=== PATIENT | female | born 1985 | race Caucasian/White ===

== ENCOUNTER 2017-02-16 02:39 | Emergency (ER) | payer SELFPAY ==
[2017-02-16 04:35] LABS: Hematocrit 33 % (35-47); Hemoglobin 10.8 g/dl (12.0-16.0); Mean Corpuscular HGB Conc 33 g/dl (31-36); Mean Corpuscular Hemoglobin 31 pg (27-31); Mean Corpuscular Volume 92 fL (80-97); Mean Platelet Volume 8 um3 (7.4-10.4); Red Blood Count 3.54 10^6/ul (4.0-5.4); Red Cell Distribution Width 14 % (10.5-15); White Blood Count 6.8 10^3/ul (3.5-10.8)
[2017-02-16 04:52] LABS: ALT 8 U/L (7-52); Albumin 4.1 g/dL (3.2-5.2); Alkaline Phosphatase 46 U/L (34-104); BUN/Creatinine Ratio 16.7 (8-20); Blood Urea Nitrogen 11 mg/dL (6-24); CO2 Carbon Dioxide 23 mmol/L (22-32); Calcium 9.5 mg/dL (8.6-10.3); Chloride 106 mmol/L (101-111); EGFR African American 135.2 (>60); EGFR Non-African American 105.2 (>60); Glucose 98 mg/dL (70-100); Sodium 135 mmol/L (133-145); Total Protein 7.1 g/dL (6.4-8.9)
[2017-02-16 04:54] LABS: AST 14 U/L (13-39); Anion Gap 6 mmol/L (2-11); Potassium 3.9 mmol/L (3.5-5.0)
[2017-02-16] MEDS ORDERED: Iohexol 300* (CONTRAST) 10 ML SDV IV ONE (06:47)
--- NOTE | 2017-02-16 07:06 | ED ---
Michael Blas Adam, scribed for Arthur Adan on 02/16/17 at 0336 . HPI Chest Pain - HPI Summary HPI Summary: Pt is a 31 year old female presenting with CP. She has had multiple PTX's on both sides (with surgery on both sides) and she thinks she is having another PTX now. She states that when she woke up yesterday morning her right side felt "different." This feeling has progressed into pain in the right side of her chest and she also c/o SOB associated with the pain. - History of Current Complaint Chief Complaint: EDGeneral Time Seen by Provider: 02/16/17 03:17 Hx Obtained From: Patient Onset/Duration: Started Days Ago, Atraumatic, Still Present Timing: Constant Initial Severity: Mild Current Severity: Moderate Pain Intensity: 5 Pain Scale Used: 0-10 Numeric Chest Pain Location: Right Anterior Chest Pain Radiates: No Aggravating Factor(s): Nothing Alleviating Factor(s): Nothing Associated Signs and Symptoms: Positive: Shortness of Breath - Allergy/Home Medications Allergies/Adverse Reactions: Allergies Allergy/AdvReac Type Severity Reaction Status Date / Time Amoxicillin Allergy Intermediate Hives Verified 02/16/17 02:49 PMH/Surg Hx/FS Hx/Imm Hx Endocrine/Hematology History: Denies: Hx Diabetes Cardiovascular History: Denies: Hx Congestive Heart Failure, Hx Hypertension Respiratory History: Reports: Other Respiratory Problems/Disorders - chronic pneumothraces History: Denies: Hx Renal Disease - Surgical History Surgery Procedure, Year, and Place: pneumothoraces Infectious Disease History: No Infectious Disease History: Denies: Traveled Outside the [place] in Last 30 Days - Family History Known Family History: Positive: None - Pt denies any FMHx - Social History Lives: Alone Alcohol Use: Occasionally Hx Substance Use: No Substance Use Type: Reports: None Hx Tobacco Use: No Smoking Status (MU): Never Smoked Tobacco Review of Systems Negative: Fever Positive: Chest Pain Positive: Shortness Of Breath All Other Systems Reviewed And Are Negative: Yes Physical Exam Triage Information Reviewed: Yes Vital Signs On Initial Exam: Initial Vitals Temp Pulse Resp BP Pulse Ox 97.9 F 66 16 115/71 100 02/16/17 02:40 02/16/17 02:40 02/16/17 02:40 02/16/17 02:40 02/16/17 02:40 Vital Signs Reviewed: Yes Appearance: Positive: Well-Appearing, No Pain Distress Skin: Positive: Warm, Skin Color Reflects Adequate Perfusion, Dry Head/Face: Positive: Normal Head/Face Inspection Eyes: Positive: EOMI, ANALI ENT: Positive: Normal ENT inspection Neck: Positive: Supple, Nontender Respiratory/Lung Sounds: Positive: Clear to Auscultation, Breath Sounds Present Cardiovascular: Positive: RRR, Pulses are Symmetrical in both Upper and Lower Extremities Abdomen Description: Positive: Nontender, Soft Bowel Sounds: Positive: Present Musculoskeletal: Positive: Normal, Strength/ROM Intact Diagnostics - Vital Signs Vital Signs Temp Pulse Resp BP Pulse Ox 02/16/17 02:40 97.9 F 66 16 115/71 100 - Laboratory Result Diagrams: 02/16/17 04:20 02/16/17 04:20 Lab Statement: Any lab studies that have been ordered have been reviewed, and results considered in the medical decision making process. - Radiology CXR Radiology Interpretation Completed By: Radiologist - PERICARDIAC RADIOLUCENCIES , SUSPICIOUS FOR PNEUMOMEDIASTINUM; ADVISE FURTHER EVALUATION WITH CHEST CT. NO FOCAL LUNG CONSOLIDATION OR PLEURAL EFFUSIONS. SURGICAL CLIPS BILATERAL LUNG APICES. PROBABLE MINIMAL PLEURAL FIBROSIS/SCARRING RIGHT COSTOPHRENIC ANGLE. SCARRING BILATERAL APICES. CARDIOMEDIASTINAL SILHOUETTE NORMAL. BONES UNREMARKABLE. - EKG 03:45 Cardiac Rate: Bradycardia - 54 BPM - Additional Comments Diagnostic Additional Comments: D-Dimer, Quantitative < 200 Troponin I - 0.00 Chest Pain Course/Dx - Diagnoses Provider Diagnoses: Chest pain, Pneumomediastinum - Provider Notifications Discussed Care Of Patient With: Dr. Casiano (Surgery). She will examine the patient. Discharge - Discharge Plan Condition: Stable Disposition: OTHER Discharge Disposition Comment: Sign out to Dr. Rodriguez, pending re-eval and chest CT. The documentation as recorded by the Michael saldivar Adam accurately reflects the service I personally performed and the decisions made by , Arthur Adan.
--- NOTE | 2017-02-16 08:24 | RAD ---
Indication: Evaluate for pneumomediastinum Contrast: Administered 80.0 ml of OMNIPAQUE 300 mgi/ml. CT of the chest was performed after IV contrast administration. Comparison is made with previous exam dated March 09, 2014. Inferior thyroid lobes are unremarkable. No mediastinal or hilar adenopathy is noted. The heart is of normal size without evidence of pericardial effusion. No definite pneumomediastinum is noted. There is a small right pneumothorax noted. No alveolar consolidation is noted. Surgical clips are noted in the apices bilaterally. Some atelectasis is noted in the lingula. The visualized abdominal organs are unremarkable. The bony structures are grossly unremarkable. IMPRESSION: Small right pneumothorax. No definite pericardial air is noted. No definite pneumomediastinum is noted. Dr. Amado was notified of results at the time of the examination.
--- NOTE | 2017-02-16 09:55 | RAD ---
Indication: Chest pain. 2 views of the chest are reviewed. No mediastinal shift is noted. Multiple surgical clips are noted. Heart is of normal size and configuration. Lung macario demonstrate no pleural fluid, pneumonia or pneumothorax. IMPRESSION: No active cardiopulmonary disease is noted.
--- NOTE | 2017-02-16 11:04 | RAD ---
Indication: Follow-up pneumothorax. Comparison is made with previous exam done earlier the same day. 2 views of the chest are reviewed. No pneumothorax is noted. Left lung field is clear. CT demonstrated right pneumothorax which does not appear to have progressed since prior exam. IMPRESSION: No pneumothorax is detected on this current study.
[2017-02-16 13:05] VITALS: BP 105/57
== END 2017-02-16 13:10 | disposition home or self-care (01) ==
LOC: ED 02:39
DX: J98.2 Interstitial emphysema (principal); R07.9 Chest pain, unspecified; R06.02 Shortness of breath
CPT/HCPCS: 36415; 71020; 71260; 80053; 84484; 84702; 85025; 85379; 93005; 99283; Q9967

== ENCOUNTER 2017-02-17 07:30 | Emergency (ER) | payer SELFPAY ==
--- NOTE | 2017-02-17 09:19 | RAD ---
Indication: Follow-up right-sided pneumothorax. 2 views of the chest are reviewed. Dual-energy PA views are reviewed. Comparison is made with previous exam dated February 16, 2017. There is likely a right sided pneumothorax which is loculated within the base. This may be slightly larger than on the prior exam. Left lung field is clear. Biapical scarring is noted. IMPRESSION: Loculated pneumothorax in the right base may be slightly larger than on prior exam of February 16, 2017.
[2017-02-17 11:14] VITALS: BP 105/66
--- NOTE | 2017-02-17 14:02 | ED ---
Laura Blas Michael, scribed for Joaquina Rodriguez MD on 02/17/17 at 0759 . HPI Chest Pain - HPI Summary HPI Summary: 31 y/o female presents to the ED with CP that started 2 days ago. She has had multiple PTX's on both sides with surgery on both sides. The pt visited the ED one day ago presenting with the same CP, and she reports the pain has not worsened. The pt describes the CP as sharp and localizing on the right side. She also c/o SOB with the CP. The PMHx is significant for Alpha-1 antitrypsin deficiency. - History of Current Complaint Hx Obtained From: Patient, Medical Records Onset/Duration: Started Days Ago, Atraumatic, Still Present Timing: Constant Initial Severity: Moderate Current Severity: Moderate Pain Intensity: 5 Pain Scale Used: 0-10 Numeric Chest Pain Location: Right Anterior Chest Pain Radiates: No Character: Sharp/Stabbing Aggravating Factor(s): Nothing Alleviating Factor(s): Nothing Associated Signs and Symptoms: Positive: Chest Pain, Shortness of Breath Related History: Similar Episode/Dx as: - pneumothorax - Allergy/Home Medications Allergies/Adverse Reactions: Allergies Allergy/AdvReac Type Severity Reaction Status Date / Time Amoxicillin Allergy Intermediate Hives Verified 02/16/17 02:49 PMH/Surg Hx/FS Hx/Imm Hx Previously Healthy: No - multiple pneumothoraces Endocrine/Hematology History: Denies: Hx Diabetes Cardiovascular History: Denies: Hx Congestive Heart Failure, Hx Hypertension Respiratory History: Reports: Other Respiratory Problems/Disorders - chronic PTX. alpha-1 antitrypsin deficiency. History: Denies: Hx Dialysis, Hx Renal Disease - Surgical History Surgery Procedure, Year, and Place: pneumothoraces. sclerosis of both lungs in [place] 5 yrs ago - Immunization History Date of Tetanus Vaccine: utd Date of Influenza Vaccine: utd - Family History Known Family History: Negative: Respiratory Disease - no other fam hx of alpha one antitrypsinase - Social History Occupation: Employed Full-time Lives: With Family Alcohol Use: Occasionally Hx Substance Use: No Substance Use Type: Reports: None Hx Tobacco Use: No Smoking Status (MU): Never Smoked Tobacco Review of Systems Constitutional: Negative Positive: Chest Pain Positive: Shortness Of Breath Gastrointestinal: Negative Skin: Negative Neurological: Negative Psychological: Normal All Other Systems Reviewed And Are Negative: Yes Physical Exam Triage Information Reviewed: Yes Vital Signs On Initial Exam: Initial Vitals Temp Pulse Resp BP Pulse Ox 98.5 F 74 19 102/64 99 02/17/17 07:47 02/17/17 07:47 02/17/17 07:47 02/17/17 07:47 02/17/17 07:47 Vital Signs Reviewed: Yes Appearance: Positive: Well-Appearing, Well-Nourished, Pain Distress Skin: Positive: Warm, Skin Color Reflects Adequate Perfusion, Dry, Other - nml skine tone Head/Face: Positive: Normal Head/Face Inspection Eyes: Positive: Conjunctiva Clear ENT: Positive: Normal ENT inspection, Hearing grossly normal. Negative: Muffled /hoarse voice Neck: Positive: Supple Respiratory/Lung Sounds: Positive: Clear to Auscultation, Decreased Breath Sounds - right side Cardiovascular: Positive: RRR, Pulses are Symmetrical in both Upper and Lower Extremities, Other - brisk capillary refill.. Negative: Murmur Musculoskeletal: Positive: Normal, Strength/ROM Intact Neurological: Positive: Sensory/Motor Intact, Alert, Oriented to Person Place, Time Psychiatric: Positive: Normal Diagnostics - Vital Signs Vital Signs Temp Pulse Resp BP Pulse Ox 02/17/17 11:13 98.6 F 68 20 105/66 02/17/17 11:00 83 25 101/70 100 02/17/17 10:30 68 20 100/61 99 02/17/17 10:00 60 18 99/64 99 02/17/17 09:30 62 16 100/67 98 02/17/17 09:00 55 15 95/57 98 02/17/17 08:30 67 17 95/54 98 02/17/17 08:00 66 17 100/60 99 02/17/17 07:55 75 20 99 02/17/17 07:53 106/64 02/17/17 07:50 98.5 F 77 19 102/64 99 02/17/17 07:47 98.5 F 74 19 102/64 99 - Laboratory Lab Statement: Any lab studies that have been ordered have been reviewed, and results considered in the medical decision making process. - Radiology CXR Xray Interpretation: Positive (See Comments) - Loculated pneumothorax in the right base may be slightly larger than on prior exam of February 16, 2017. Radiology Interpretation Completed By: Radiologist Chest Pain Course/Dx - Course Course Of Treatment: Consulted with Dr. Cruz (Surgery) at 1009. Dr. Cruz agrees with plan of treatment and believes the pt can be discharged home. She should have a repeat CXR tomorrow prior to an appointment with Surgery office tomorrow. - Chest Pain Differential Diagnosis/HQI/PQRI: Lower Respiratory Infection, Other: - pneumothorax, pneumomediastinum - Diagnoses Provider Diagnoses: Pneumothorax on right Discharge - Discharge Plan Condition: Stable Disposition: HOME Patient Education Materials: Spontaneous Pneumothorax (ED) Forms: *Work Release Referrals: [facility] [place] [facility] [Outside] (Call this number to get established with a primary care provider ) No Primary Care Phys,NOPCP [Primary Care Provider] - Federico Cruz MD [Medical Doctor] - 1 Day (Have an outpatient chest xray prior to the appointment. Have definite follow up tomorrow. ) Tiffanie Dick MD [Medical Doctor] - As Soon As Possible (this is the blockman ) The documentation as recorded by the Laura saldivar Michael accurately reflects the service I personally performed and the decisions made by me, Joaquina Rodriguez MD.
== END 2017-02-17 11:13 | disposition home or self-care (01) ==
LOC: ED 07:30
DX: J93.9 Pneumothorax, unspecified (principal); E88.01 Alpha-1-antitrypsin deficiency; Z88.0 Allergy status to penicillin
CPT/HCPCS: 71020; 99282

== ENCOUNTER 2017-03-17 14:16 | Emergency (ER) | payer SELFPAY ==
[2017-03-17 16:39] VITALS: BP 105/75
--- NOTE | 2017-03-17 17:06 | UC ---
Skin Complaint HPI - HPI Summary HPI Summary: red spots on hands and feet--fine rash across abdomen - History of Current Complaint Chief Complaint: UCSkin Time Seen by Provider: 03/17/17 16:58 Stated Complaint: ALLERGIC REACTION Hx Obtained From: Patient Hx Last Menstrual Period: 03/16/17 ?: No Onset/Duration: Sudden Onset, Lasting Days, Still Present Skin Exposure Onset/Duration: Days Ago - exposed to hand, foot and mouth disease last week end Timing: Constant Onset Severity: Mild Current Severity: Mild Location: Diffuse - hand and feet Character: Redness Aggravating: Nothing Alleviating: Nothing Associated Signs & Symptoms: Positive: Negative - Allergy/Home Medications Allergies/Adverse Reactions: Allergies Allergy/AdvReac Type Severity Reaction Status Date / Time Amoxicillin Allergy Intermediate Hives Verified 02/16/17 02:49 Home Medications: Home Medications Diphenhydramine HCl [Benadryl Allergy 25 MG CAP] 03/17/17 [History] Review of Systems Constitutional: Negative Skin: Rash - hand and feet individual macular rash, finerash on abdomen Eyes: Negative ENT: Negative Respiratory: Negative Cardiovascular: Negative Gastrointestinal: Negative Genitourinary: Negative Motor: Negative Neurovascular: Negative Musculoskeletal: Negative Neurological: Negative Psychological: Negative All Other Systems Reviewed And Are Negative: Yes PMH/Surg Hx/FS Hx/Imm Hx Previously Healthy: Yes Endocrine History Of: Denies: Diabetes Cardiovascular History Of: Denies: Hypertension, Congestive Heart Failure GI/ History Of: Denies: Renal Disease - Surgical History Surgical History: Yes Surgery Procedure, Year, and Place: pneumothoraces - 8 years ago. sclerosis of both lungs in [place] 5 yrs ago - Family History Known Family History: Positive: None - Pt denies any FMHx Negative: Respiratory Disease - no other fam hx of alpha one antitrypsinase - Social History Occupation: Employed Full-time Lives: With Family Alcohol Use: Occasionally Substance Use Type: None Smoking Status (MU): Never Smoked Tobacco - Immunization History Most Recent Influenza Vaccination: declined Most Recent Tetanus Shot: unk Most Recent Pneumonia Vaccination: none Physical Exam Triage Information Reviewed: Yes Appearance: Well-Appearing, No Pain Distress, Well-Nourished Vital Signs: Initial Vital Signs Temp 97.7 F 03/17/17 16:33 Pulse 64 03/17/17 16:33 Resp 16 03/17/17 16:33 BP 105/75 03/17/17 16:33 Pulse Ox 99 03/17/17 16:33 Vital Signs Reviewed: Yes Eye Exam: Normal Eyes: Positive: Conjunctiva Clear ENT Exam: Normal ENT: Positive: Normal ENT inspection, Hearing grossly normal, Pharyngeal erythema, TMs normal. Negative: Nasal congestion, Nasal drainage, Tonsillar swelling, Tonsillar exudate, Trismus, Muffled/hoarse voice Dental Exam: Normal Neck exam: Normal Neck: Positive: Supple, Nontender, No Lymphadenopathy Respiratory Exam: Normal Respiratory: Positive: Chest non-tender, Lungs clear, Normal breath sounds, No respiratory distress, No accessory muscle use Cardiovascular Exam: Normal Cardiovascular: Positive: RRR, No Murmur, Pulses Normal, Brisk Capillary Refill Musculoskeletal Exam: Normal Musculoskeletal: Positive: Strength Intact, ROM Intact, No Edema Neurological Exam: Normal Neurological: Positive: Alert, Muscle Tone Normal Psychological Exam: Normal Skin Exam: Normal Skin: Positive: rashes - macular rash on hands and feet, fine red rash across abdomen Course/Dx - Course Course Of Treatment: fluids, tylenol, ibuprofen follow with pcp prn - Differential Diagnoses - Skin Complaint Differential Diagnoses: Cellulitis, Drug Rash, Varicella Zoster, Viral Exanthem , Other - coxsackie virus - Diagnoses Provider Diagnoses: Coxsackie virus infection Discharge - Discharge Plan Condition: Stable Disposition: HOME Patient Education Materials: Hand, Foot, and Mouth Disease (ED) Referrals: [facility] [place] [facility] [Outside] - If Needed
== END 2017-03-17 17:12 | disposition home or self-care (01) ==
LOC: UCEAST 14:16
DX: B34.1 Enterovirus infection, unspecified (principal)
CPT/HCPCS: 99211; G0463

== ENCOUNTER 2018-01-31 15:15 | Emergency (ER) | payer MEDICAID ==
[2018-01-31 15:32] VITALS: BP 124/84
[2018-01-31] MEDS ORDERED: Phenazopyridine TAB* 100 MG PO ONE (16:43)
[2018-01-31] MEDS ORDERED: Nitrofurantoin Macrocrystals* 50 MG CAP PO ONE (16:44)
--- NOTE | 2018-01-31 16:46 | UC ---
Complaint Female HPI - HPI Summary HPI Summary: suprapubic pain with urination with burning for several days. Denies flank pain , fever, nausea or vomiting. States she voided and has seen small amount of blood - History Of Current Complaint Chief Complaint: UCGU Stated Complaint: POSS UTI Time Seen by Provider: 01/31/18 16:29 Hx Obtained From: Patient Hx Last Menstrual Period: 2 months ago ?: No Onset/Duration: Gradual Onset, Lasting Days Timing: Intermittent Severity Initially: Mild Severity Currently: Moderate Pain Intensity: 6 Character: Burning Aggravating Factor(s): Urination Associated Signs And Symptoms: Positive: Negative - Risk Factors Ectopic Risk Factor: Negative Ovarian Torsion Risk Factor: Negative - Allergies/Home Medications Allergies/Adverse Reactions: Allergies Allergy/AdvReac Type Severity Reaction Status Date / Time amoxicillin Allergy Hives Verified 01/31/18 15:33 Home Medications: Home Medications Desogestrel-Ethinyl Estradiol [Aprmook 28 Day Tablet] 1 tab PO DAILY 01/31/18 [ History Confirmed 01/31/18] PMH/Surg Hx/FS Hx/Imm Hx Previously Healthy: Yes - Surgical History Surgical History: Yes Surgery Procedure, Year, and Place: pneumothoraces - 8 years ago. sclerosis of both lungs in [place] 5 yrs ago - Family History Known Family History: Positive: None - Pt denies any FMHx Negative: Respiratory Disease - no other fam hx of alpha one antitrypsinase - Social History Alcohol Use: Occasionally Substance Use Type: None Smoking Status (MU): Never Smoked Tobacco - Immunization History Most Recent Influenza Vaccination: declined Most Recent Tetanus Shot: unk Most Recent Pneumonia Vaccination: none Review of Systems Constitutional: Negative Genitourinary: Dysuria All Other Systems Reviewed And Are Negative: Yes Physical Exam Triage Information Reviewed: Yes Appearance: Well-Appearing, No Pain Distress Vital Signs: Initial Vital Signs Temp 98.6 F 01/31/18 15:29 Pulse 103 01/31/18 15:29 Resp 18 01/31/18 15:29 BP 124/84 01/31/18 15:29 Pulse Ox 100 01/31/18 15:29 Vital Signs Reviewed: Yes ENT: Positive: Pharynx normal Neck: Positive: Supple, Nontender, No Lymphadenopathy Respiratory: Positive: Chest non-tender, Lungs clear, Normal breath sounds, No respiratory distress Cardiovascular: Positive: RRR, No Murmur, Pulses Normal, Brisk Capillary Refill Abdomen Description: Positive: Nontender, No Organomegaly, Soft Bowel Sounds: Positive: Present Complaint Female Dx - Course Course Of Treatment: start medications as prescribed continue oral hydration, discussed side effects of medications and discoloration of urine with pyridium - Differential Dx/Diagnosis Provider Diagnoses: UTI Discharge - Sign-Out/Discharge Documenting (check all that apply): Discharge - Discharge Plan Condition: Stable Disposition: HOME Patient Education Materials: Urinary Tract Infection in Women (ED), Nitrofurantoin (By mouth), Phenazopyridine (By mouth) Referrals: No Primary Care Phys,NOPCP [Primary Care Provider] - [facility] [place] [facility] [Outside] - Billing Disposition and Condition Condition: STABLE Disposition: HOME
--- NOTE | 2018-02-02 16:39 | UC ---
- Progress Note Progress Note: Pt with + UTI + E. Coli Pt on macribid, sensitive no changes Moe 02/02/18 1640 Discharge - Sign-Out/Discharge Documenting (check all that apply): Discharge - Discharge Plan Condition: Stable Disposition: HOME Prescriptions: Nitrofurantoin Macrocrystals* [Macrodantin*] 100 mg PO BID 7 Days #14 cap Phenazopyridine TAB* [Pyridium 100 mg TAB*] 100 mg PO TID #7 tab Patient Education Materials: Nitrofurantoin (By mouth), Phenazopyridine (By mouth), Urinary Tract Infection in Women (ED) Referrals: [facility] [place] [facility] [Outside] No Primary Care Phys,NOPCP [Primary Care Provider] - - Billing Disposition and Condition Condition: STABLE Disposition: HOME
== END 2018-01-31 17:04 | disposition home or self-care (01) ==
LOC: UCEAST 15:15
DX: N39.0 Urinary tract infection, site not specified (principal); B96.20 Unspecified Escherichia coli [E. coli] as the cause of diseases classified elsewhere; Z32.02 Encounter for pregnancy test, result negative; Z88.0 Allergy status to penicillin
CPT/HCPCS: 81003; 84702; 87077; 87086; 87186; 99212; A9270-GY; G0463

== ENCOUNTER 2024-09-04 11:40 | Observation (INO) ==
[~2024-09-04 11:40] MED LIST: Acetaminophen IV 1 GM/100ML 1,000 MG/100 ML BAG IV ONE; NS 0.45% 1000 ml BAG 1,000 ML IV SCH; Naloxone 0.4 mg VIAL 0.4 mg/ml 1 ml VIAL IV PRN; Ondansetron 4 mg VIAL 2 MG/ML 2 ml VIAL IV PRN; fentaNYL 100 mcg/2 ml 50 MCG/ML VIAL IV PRN
[2024-09-04] MEDS: Buffered Lidocaine 1% SYRIN 1 ml INTRADERM ONE (12:13)
[2024-09-04] MEDS: Scopolamine 1 mg/72hr PATCH TRANSDERM ONE (12:13)
[2024-09-04] MEDS: Lactated Ringers 1000 ml BAG 1,000 ML IV SCH (12:13)
[2024-09-04] MEDS ORDERED: Scopolamine 1 mg/72hr PATCH ONE (12:22)
[2024-09-04 12:23] LABS: Rapid COVID-19 Molecular Undetected (Undetected)
[2024-09-04] MEDS ORDERED: fentaNYL 250 mcg/5 ml 50 MCG/ML 5 ml VIAL (250 MCG) ONE (12:49)
[2024-09-04] MEDS ORDERED: Propofol 10 MG/ML 20 ML BTL ONE ×4 (12:49→17:41)
[2024-09-04] MEDS ORDERED: Lidocaine 2% PF 5 ML VIAL ONE (12:49)
[2024-09-04] MEDS ORDERED: Midazolam 2 mg/2 ml VIAL 1 mg/ml 2 ml VIAL (2 mg) ONE (12:49)
[2024-09-04] MEDS ORDERED: Dexamethasone IV 4 MG/ML VIAL 1 ml VIAL ONE ×2 (12:49→17:26)
[2024-09-04] MEDS ORDERED: Ondansetron 4 mg VIAL 2 MG/ML 2 ml VIAL ONE (12:49)
[2024-09-04] MEDS ORDERED: Lidocaine 1% w EPI 1:100,000 MDV 20 ML VIAL ONE (14:00)
[2024-09-04] MEDS ORDERED: fentaNYL 100 mcg/2 ml 50 MCG/ML VIAL ONE ×3 (14:53→16:49)
[2024-09-04] MEDS ORDERED: Phenylephrine 40 mcg/mL 10mL (400mcg) SYRINGE ONE (14:54)
[2024-09-04] MEDS ORDERED: HYDROmorphone 0.5 MG/0.5 ML SYRINGE ONE (15:37)
[2024-09-04] MEDS ORDERED: Calcium Gluconate 1 GM/10 ML VIAL (in Pyxis) IV PUSH PRN (19:21)
[2024-09-04] MEDS ORDERED: CALCIUM GLUCONATE 1GM/50ML NS BAG IV PRN (21:20)
[2024-09-04] MEDS: Calcium Carb (TUMS) 500 mg CHEW TAB PO SCH (23:29)
[2024-09-05 06:24] LABS: ABS Lymphocytes 1.1 10^3/uL (1.0-4.8); ABS Monocytes 0.7 10^3/uL (0.0-0.9); ABS Neutrophils 9.2 10^3/uL (1.5-7.6); Hematocrit 32.4 % (35-45); Lymphocyte % 9.6 %; Mean Corpuscular Hemoglobin 32.3 pg (27-33); Mean Corpuscular Hgb Conc 33.9 g/dL (31-36); Mean Corpuscular Volume 95.3 fL (80-97); Platelet Count 239 10^3/uL (150-450); Red Cell Distribution Width 12.4 % (12-17)
[2024-09-05 07:34] LABS: Albumin 4.1 g/dL (3.2-5.2); Albumin/Globulin Ratio 1.9 (1-3); Calcium 8.7 mg/dL (8.6-10.3); Creatinine, Serum 0.67 mg/dL (0.51-0.95); Globulin 2.2 g/dL (2-4); Potassium 4.4 mmol/L (3.5-5.0); Total Bilirubin 0.5 mg/dL (0.2-1.0); Total Protein 6.3 g/dL (6.4-8.9); eGFR CKD-EPI 114.7 (>60)
[2024-09-05 15:26] VITALS: BP 110/62
== END 2024-09-05 15:25 | disposition home or self-care (01) ==
LOC: SSU 11:40 → OR 11:40
PROVIDERS: ADMIT Internal Medicine; ATTEND Otolaryngology